=== PATIENT | male | born 1945 | race Caucasian/White ===

== ENCOUNTER 2018-11-28 08:38 | Inpatient (IN) | payer OTHER, BC ==
[~2018-11-28] VITALS: Ht 188 cm; Wt 136.1 kg
[~2018-11-28 08:38] MED LIST: ALLER-EASE180 MG PO; ASACOL HD800 MG PO; DYMISTA NASAL S23 GM NASAL; FIBER500 MG PO; FISH OIL 1,001000 M2 PO; FLUVASTATIN SOD40 MG PO; GLUCOSAMINE HC500 MG PO; LISINOPRIL20 MG PO; MOMETASONE FURO17 GM NASAL; MULTIVITAMINS PO; NORVASC5 MG PO; OMEPRAZOLE 20 M20 M1 PO; SERTRALINE HCL50 MG PO; ST. JOSEPH ASPI81 MG PO; TERAZOSIN HCL5 MG PO; TIROSINT112 MCG PO; TOPROL XL50 MG; VESICARE 5 MG TA5 M1 PO; VITAMIN D250000 UNIT PO; WELLBUTRIN XL150 MG PO; ZYLOPRIM300 MG PO
[2018-11-28 09:40] LABS: CALCIUM 9.9 mg/dL (8.5-10.1); CREATININE 1.7 mg/dL (0.7-1.3); POTASSIUM 4.4 mmol/L (3.5-5.1)
--- NOTE | 2018-11-28 18:30 | NUR ---
73 YO MALE TRANSFERED FROM PACU TO 447. A&OX4, IV INTACT IN L FA. O2@2L PER NC. DRSG TO R SHOULDER WITH POLAR PACK AND ALVERTO WRAP TO SECURE. DENIES ANY PAIN REPORTS TINGLING IN FINGERS. SCD'S ARE IN PLACE. TOLERATING PO WELL. SPOUSE AT BEDSIDE.
[2018-11-28 19:46] VITALS: BP 111/66
[2018-11-29 04:52] VITALS: BP 126/69
--- NOTE | 2018-11-29 05:30 | NUR ---
ASSUMED PT CARE AT @19:15.PT IS A/O X4.PT DENIED PAINS AT START OF SHIFT.IV LFA .PT WAS ON O2/NC /2L.PT LATER COMPLAIN OF SEVERE PAIN AND GIVEN MORPHINE 2MG AND NORCO 2TABS X2 WITH PARTIAL RELIEVE.PT HAS ALVERTO WRAP DRESSING WITH POLAR PACK AND SHOULDER IMMOBILISER.DRESSING D/C/I.PT IS CPAP AT NIGHT .O2 SAT 88% AND WAS PUT ON O2/NC/2L.PT IS UP WITH SBA .PT ASSISTED TO BATHROOM X3.CONTINUE TO MONITOR.
[2018-11-29 05:35] LABS: HEMATOCRIT 26.8 % (42.0-52.0); HEMOGLOBIN 8.9 gm/dL (14.0-18.0)
[2018-11-29 05:39] LABS: POTASSIUM 5.2 mmol/L (3.5-5.1)
--- NOTE | 2018-11-29 08:03 | NUR ---
PT VOIDED ONCE ON THIS SHIFT,BLADDER SCANNED PT HAD 420CC,STRAIGHT CATH DONE GOT 400CC.REPORT TO AM NURSE TO FOLLOW UP ON
[2018-11-29 08:30] VITALS: BP 139/51
--- NOTE | 2018-11-29 12:36 | NUR ---
PT ADMITTED RELATED TO RT TSA. CM REVIEWED CHART AND SPOKE WITH CARE TEAM. CM MET WITH PT AND SPOUSE AT BEDSIDE THIS DAY. PT IS A&O X4. CM ROLE INTRODUCED. PT INDICATED HE LIVES IN A HOUSE WITH IS WITH 10 STEPS TO ENTER WITH HANDRAILS ON LEFT SIDE WITH ALL NEEDS ON ONCE INSIDE. 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 PT INDICATED HE HAD HH IN THE PAST BUT COULDN'T RECALL PROVIDER. PT INDICATED THAT HE PLANS TO RETURN HOME ONCE MEDICALLY STABLE. CM TO FOLLOW INDICATED WITH DC PLANNING.
--- NOTE | 2018-11-29 20:08 | NUR ---
PATIENT PROGRESSING TOWARDS OUTCOME GOALS EVIDENT BY UP IN THE CHAIR AND AMBULATING IN THE HALLS TODAY . ADEQUATE PAIN CONTROL WITH PO PAIM MEDS, INTERMITTENT OFF THE WALL COMMENTS PER AFTER PAIN MEDS AND ESPECIALLY WHEN GIVEN MORPHINE SULFATE IN THE PAST. POST VOID RESIDUAL WAS 0 ML. PATIENT VOIDING SMALL AMTS WITHOUT DIFFICULTY. TAKING PO DIET WITHOUT NAUSEA OR EMESIS, IV FLUIDS STOPPED AND IV SALINE LOCKED. PATIENT AND UPDATED TO POC AND REASSURANCE GIVEN, VERBALIZE UNDERSTANDING.
[2018-11-29 20:11] VITALS: BP 144/70
--- NOTE | 2018-11-30 05:53 | NUR ---
PT C/O PAIN,MANAGED WITH MED.PT LATER REQUESTED FOR SLEEP MED,SUPERINTENDENT [employer]CTORY ON DUTY NOTIFIED,ORDER NOTED AND CARRIED OUT.ICE TO HIS R SHOULDER,POLAR PACK'S ICE CHANGED NEEDED.PT'S SPOUSE IN ROOM ASSISTING WITH HIS CARES.DRSG C/D/I WITH IMMOBILIZER.PT WITH ADEQUATE URINE OUTPUT.FALL PRECAUTIONS IN PLACE.CALL LIGHT WITHIN REACH.
[2018-11-30 08:58] VITALS: BP 142/57
[2018-11-30 10:24] LABS: CALCIUM 9.6 mg/dL (8.5-10.1); CREATININE 1.6 mg/dL (0.7-1.3); POTASSIUM 4.3 mmol/L (3.5-5.1)
[2018-11-30 11:36] VITALS: BP 142/57
--- NOTE | 2018-11-30 12:00 | NUR ---
DISCHARGE PAPERS GONE OVER WITH PATIENT AND SPOUSE, SIGNED AND COPY IN CHART. GABRIELA ACSESS DCD. RX GIVEN, ALL BELONGINGS PACKED AND SENT WITH PATIENT. DR BILLS CALLED AND GIVEN KCL RESULTS 4.3. AND MADE AWARE THAT DR LULA PEREZ WAS HERE AND DISCHARGED PATIENT.
[2018-11-30 12:13] VITALS: BP 142/57
--- NOTE | 2019-01-02 11:38 | O ---
[facility] [place] [address] OPERATIVE REPORT Name: QIAN LIZARRAGA Room #: 447-P [facility] IN M.R.#: [id number] Admission: 11/28/18 Attend Phys: Geremias Parks Discharge: 11/30/18 Date of : 43 Report #: [id number] THIS REPORT FOR: //name// CC: Geremias Chiangele Jadon DATE OF SERVICE: 11/28/2018 PREOPERATIVE DIAGNOSIS: Right proximal humerus fracture, displaced, 4-part. POSTOPERATIVE DIAGNOSIS: Right proximal humerus fracture, displaced, 4-part with biceps tendinopathy and rotator cuff tear. PROCEDURE PERFORMED: Right reverse total shoulder arthroplasty with open biceps tenodesis. SURGEON: Geremias Bui MD SCENARIO WRITER: Aster Robledo PA-C. ANESTHESIA: General per endotracheal tube with preoperative ultrasound-guided interscalene block. FLUIDS: 600 mL of crystalloid. ESTIMATED BLOOD LOSS: Approximately 100 mL. IMPLANTS UTILIZED: DePuy Delta Xtend reverse shoulder arthroplasty, size 14, monoblock standard cemented stem with a 42 mm, +4 lateralized centered glenosphere, standard, standard metaglene with a +9 humeral spacer and a 3 mm polyethylene liner. DESCRIPTION OF PROCEDURE: After the patient and operative site were identified in the preoperative holding area, the operative site was signed by myself. Prophylactic antibiotics was given. The patient discussed the risks, benefits, alternatives and complications of a preoperative block with anesthesia and elected to proceed with this. After a satisfactory block, the patient was brought back to the operative suite after induction of satisfactory general anesthesia per endotracheal tube. He was carefully positioned on the fracture table with head of bed elevated approximately 40 degrees. A Fluidigm limb positioning system was utilized throughout the entire procedure. Right shoulder was sterilely prepped and draped in the usual manner. Moderate swelling and ecchymosis was noted about the arm extending into the forearm. Final skin draping was with Ioban. Anterior deltopectoral approach was planned. Skin was incised sharply. Full-thickness skin flaps were developed. Deltopectoral interval was identified and opened. Blunt retractors were used to retract the [facility] [address] [place] [address] OPERATIVE REPORT Name: QIAN LIZARRAGA Room #: 447-P [facility] IN M.R.#: [id number] Admission: 11/28/18 Attend Phys: Geremias Parks Discharge: 11/30/18 Date of : 43 Report #: [id number] soft tissues. The fracture site was identified. There was a fracture involving the greater and lesser tuberosities and a displaced head fragment. Rotator interval was opened. Biceps tendinopathy was noted and this was tenodesed to the undersurface of the pectoralis major tendon using #2 FiberWire. Tag stitch was placed on the remaining subscapularis as well as the more posterior supraspinatus and infraspinatus. Pronounced degenerative change was noted on both sides of the joint. The patient had little if any humeral bone left in a thin shell of bone and was remaining of the head and there was no way that had satisfactory purchase could be obtained with an ORIF portion of the rotator cuff had been torn as well. Frayed edges were carefully debrided. At this point, anterior capsule was released off the subscapularis and again pronounced degenerative changes were noted on both the humeral side as well as the glenoid. Frayed labrum and remaining biceps tendon were removed circumferentially. The axillary nerve had been identified and protected throughout the entire procedure. Capsule was released off the inferior aspect of the labrum and glenoid. Blunt retractors were used for exposure purposes. Guidepin was placed within the glenoid while centering the guide more inferiorly. After the appropriate trajectory was noted, this was then advanced into the glenoid. Glenoid face was reamed. Alvin reamer was utilized and remaining soft tissue was carefully removed and then a step drill was utilized. Standard metaglene was carefully impacted. Superior and inferior locking screws were inserted. These had good purchase. Next, anterior and posterior nonlocking screws were inserted. These had excellent purchase. They were sequentially tightened. Locking screws were locked and then a lateralized but centered 42 mm glenosphere was placed over a guidewire. The locking screw was rotated counterclockwise until a click was noted and the glenosphere was felt to be fully seated. This was then tightened, impacted, and tightened three additional times until it was felt to be fully seated. Next humeral canal was sized up to a size 14 and trial implant as well as with a polyethylene spacers revealed 12 mm of augmentation provided the best overall fit and stability. Implant was placed in approximately 10 degrees of retroversion. A cemented monoblock component was inserted after the canal had been prepped. Cement restrictor was placed distally and two bags of cement were then injected with cement gun. The implant was then carefully impacted into position with excess bone cement removed immediately. This was allowed to fully harden and then a +9 spacer and a 3 mm polyethylene provided a good soft tissue tension and stability of the joint and these were the final implants implanted. He did not appear to be in need of a +6 poly, the 3 provided, I think, the best overall fit and stability. Joint was thoroughly irrigated multiple times with antibiotic irrigant. Throughout the procedure, the axillary nerve appeared to have no undue tension on it and two #2 FiberWires were placed within the anterior fin of the prosthesis and the rotator cuff was repaired with the remaining posterior cuff attachments as well as the subscapularis. An additional #2 FiberWire was used for more [id number] repair of the cuff tear. Joint was again thoroughly irrigated. Then 1 gram of vancomycin powder was utilized, half at deep, half of it more superficial. Deltopectoral interval was closed followed by the subcutaneous tissues and a [facility] [address] [place] [address] OPERATIVE REPORT Name: QIAN LIZARRAGA Room #: 447-P [facility] IN M.R.#: [id number] Admission: 11/28/18 Attend Phys: Geremias Parks Discharge: 11/30/18 Date of : 43 Report #: [id number] running Monocryl was used for final skin closure. Dermabond was applied as well as sterile dressing. He was awakened and transferred to the recovery room in stable condition in a sling had been applied. No obvious anesthetic complications were noted and a qualified mate first utilized throughout the entire procedure to aid in patient limb positioning, retraction of soft tissues, instrument passage, closure and sling and dressing. <ELECTRONICALLY SIGNED> By: Geremias Bui MD 01/02/19 1138 [id number] Geremias Bui MD /nt
== END 2018-11-30 12:20 | disposition home or self-care (01) | DRG 483 ==
LOC: TBA 08:38 → 4S 08:38 → EDSTATUS 09:53 → PRE 09:59 → OR 13:33 → 4S 15:30 → ENTRNSPT 11-30 12:07 → EDTRNSPTSTS 11-30 12:11 → 4S 11-30 12:20
PROVIDERS: Anesthesiology; Hospitalist; Physician Assistant Surgical; ADMIT Orthopaedic Surgery Sports Medicine
PROC: 0RRJ00Z Replacement of Right Shoulder Joint with Reverse Ball and Socket Synthetic Substitute, Open Approach (ICD-10-PCS; principal; 2018-11-28)
PROC: 5A09357 Assistance with Respiratory Ventilation, Less than 24 Consecutive Hours, Continuous Positive Airway Pressure (ICD-10-PCS; principal; 2018-11-28)
DX: S42.201A Unspecified fracture of upper end of right humerus, initial encounter for closed fracture (principal); N17.9 Acute kidney failure, unspecified; I10 Essential (primary) hypertension; E78.00 Pure hypercholesterolemia, unspecified; F41.9 Anxiety disorder, unspecified; E89.0 Postprocedural hypothyroidism; M75.101 Unspecified rotator cuff tear or rupture of right shoulder, not specified as traumatic; K21.9 Gastro-esophageal reflux disease without esophagitis; E87.5 Hyperkalemia; F32.9 Major depressive disorder, single episode, unspecified; G47.33 Obstructive sleep apnea (adult) (pediatric); G89.29 Other chronic pain; E66.9 Obesity, unspecified; Z88.6 Allergy status to analgesic agent; Z88.8 Allergy status to other drugs, medicaments and biological substances; Z79.82 Long term (current) use of aspirin; Z79.899 Other long term (current) drug therapy; Z95.0 Presence of cardiac pacemaker; Z85.850 Personal history of malignant neoplasm of thyroid; Z92.3 Personal history of irradiation; X58.XXXA Exposure to other specified factors, initial encounter; Y93.89 Activity, other specified; Y92.89 Other specified places as the place of occurrence of the external cause; Y99.8 Other external cause status
CPT/HCPCS: 10102; 50010; 50101; 50172; 50386; 50417; 50697; 50733; 50935; 51130; 51225; 51320; 51751; 52001; 52138; 52256; 52282; 53000; 53078; 54118; 55430; 56521; 56524; 56525; 56526; 56530; 57006; 57095; 57103; 62110; 62900; 64039; 65130; 70005